=== PATIENT | female | born 1965 | race Caucasian/White ===

== ENCOUNTER 2016-04-07 17:08 | Emergency (ER) | payer OTHER ==
[~2016-04-07 17:08] MED LIST: CITRUCEL PO; FISH OIL PO; FLE10 PO; TYLENOL #4 PO
[2016-04-07 17:17] VITALS: BP 130/92; PULSE 125; RESP 22; O2SAT 98
--- NOTE | 2016-04-07 18:45 | ED.REPORT ---
HPI-Back Pain 40 and Over Date of Service Apr 07, 2016 ED Provider: Ector Ortiz MD Pt is a 50 y/o female presenting to the ED c/o increasing back pain over the sacrum w/ radiation to the bilateral legs for 1.5 weeks. She has been treated for her pain and evaluated by her PCP Dr. Douglas previously and had an MRI on Mar 07 which showed disc bulging at S1 and L4-L5. Her increasing pain has started to limit how long she can work. Her pain medications have been increased recently and she was told to rest for 4 days but this has provided no relief. She was told by her PCP to come into the ED. She denies bowel or bladder incontinence, severe lower extremity weakness, saddle anesthesia, fever. She has been trying to get an appointment with a neurosurgeon. The patient takes Tylenol, Cyclobenzaprine, Gabapentin, and Ibuprofen for her pain. She does not take opiates. Nursing Notes Stated Complaint: BACK PAIN Chief Complaint: Back Pain or Injury Nursing Notes Reviewed: Yes Allergies: Coded Allergies: atorvastatin (Verified Allergy, Severe, Myalgia, 04/07/16) hydromorphone (Verified Allergy, Severe, 04/07/16) hydromorphone HCl (Verified Allergy, Severe, heart stopped, 04/07/16) oxycodone (Verified Allergy, Severe, 04/07/16) levofloxacin (Verified Adverse Reaction, Severe, Blood surgar elevations, 04/07/16) doxycycline (Verified Adverse Reaction, Intermediate, pruritus, 04/07/16) ketorolac (Verified Adverse Reaction, Intermediate, pruritus, 04/07/16) Uncoded Allergies: MEDICATION BINDERS (Allergy, Intermediate, 12/04/11) Scheduled ([Fish Oil]) 1 PO DAILY Scheduled PRN ([Tylenol #4]) 1-2 PO PRN ([Citrucel]) 2 TBS PO DAILY PRN PRN Cyclobenzaprine-Expunged Drug, Do Not Renew! (Flexeril-Expunged Drug, Do Not Renew!) 10 Mg Tablet 10 MG PO DAILY PRN PRN Tramadol (Tramadol) 50 Mg Tablet 50 MG PO Q4H PRN PRN For Pain General Time Seen by MD: 18:44 Chief Complaint Lumbar pain Hx Obtained From: Patient Arrived By: Walk-in Sudden in Onset?: No Onset Occurred: 1 week ago Symptom Duration: Since onset Location: : Perispinal sacral Quality: Painful Severity: Current: Moderate Severity: Maximum: Severe Recent Healthcare: Recent testing, Previous diagnosis Similar Sx Previous: Yes Past Medical History Past Medical History Chronic back pain - spinal stenosis - MRI performed Past Surgical History None reported Smoking History Unknown if Ever Smoker Ambulatory Status Independent Review of Systems Constitutional: Denies: Fever Musculoskeletal: Reports: Lumbar pain Neurologic: Reports: Numbness, Denies: Bladder dysfunction, Bowel dysfunction, Weakness Complete sys rev & neg: except as marked. Physical Exam Initial Vital Signs Vital Signs (First) Date Time Temp Pulse Resp B/P Pulse Ox O2 Delivery O2 Flow Rate FiO2 04/07/16 17:17 36.4 125 22 130/92 98 Room Air Initial VS: Reviewed, Vital signs abnormal Head / Eyes: Atraumatic, Normocephalic, PERRL ENT: Mucous membranes moist, Conjunctiva normal, No scleral icterus Neck: Supple, Full range of motion Skin: Warm, Dry, No cyanosis Psychiatric: Mood/affect normal, Behavior normal, Normal thought content General/Constitutional: Awake, Alert, No acute distress, Cooperative, Not toxic appearing Appearance / Presentation: Positive: Uncomfortable Respiratory / Chest: Atraumatic, Breath sounds NL, Breath sounds = bilat, No respiratory distress, No rales, No rhonchi, No wheezing, No retractions, No stridor, No chest tenderness, No chest wall deformity, No crepitus Cardiovascular: Heart rate NL, Regular rhythm, Heart sounds NL, No gallop, No murmurs, No rubs, Cap refill not delayed, Peripheral circulation NL Abdomen: Atraumatic, Soft, Non-tender Back: Atraumatic Neurologic: Oriented X3, Speech NL, No sensory deficits Poor effort for the RLE strength exam. Full strength otherwise. No numbness No red flags Rectum / Perineum: Sphincter tone NL Re-Eval/Medical Decision Med Decision/Clinical Course 50-year-old female history of low back pain times several months. Complaining of worsening pain in the past week. She had an MRI of her lumbar spine March 07 which showed L4-L5 disc bulge with mild canal stenosis. She denies any new weakness, incontinence, numbness, saddle anesthesia. Her neurological exam is intact but with right lower extremity decreased effort. She denies any recent changes. Patient will be given tramadol to manage her pain. She does not have any sign symptoms of cauda equina at this time. She has no acute changes therefore she is advised to follow-up with her primary doctor and neurosurgeon as an outpatient. She is advised to return if she develops any new symptoms or sign symptoms cauda equina as discussed. She will be given a prescription for tramadol for breakthrough pain to add to her current regimen which includes muscle relaxer and NSAIDs. Re-Evaluation/Progress : Time of Eval: 19:52 Re-Evaluation/Progress Note: Pt rechecked. Informed pt of plan for treatment. Pt understands and agrees with plan for treatment. F/U instructions and RTER warnings given. All questions addressed. Counseled Regarding: Diagnosis, Need for follow-up, When/why to return to ED Discharge & Departure Impression: Primary Impression: Low back pain Chronicity: chronic Back pain laterality: unspecified Sciatica presence: with sciatica Sciatica laterality: bilateral sciatica Qualified Code: M54.41 - Lumbago with sciatica, right side Disposition: Home Discharge Condition All VS Reviewed: Yes Condition: Stable Patient Instructions: Acute Low Back Pain (ED) Additional Instructions: After review of old records, imaging, along with your interview and physical exam, I do not believe a new MRI or emergent surgery is required today. The most important thing for you to do at this point is have an appointment with a neurosurgeon. Return to the emergency department if you experience increasing leg weakness, increasing leg numbness, bowel or bladder incontinence, numbness of the saddle region (genitals, middle upper thighs), or for other concerning symptoms. Follow-up with your primary care physician in 2 days. Referrals: Kim Douglas MD (PCP) Eloy Attestation Portions of this note were transcribed by Lupillo Renee. I, Dr. Ortiz, personally performed the history, physical exam and medical decision-making; I reviewed and confirmed the accuracy of the information in the transcribed note. Signed by Eloy Washington, 04/07/16 - 1999 copies to: Kim Douglas MD, Ben M MD Apr 07, 2016 18:45 LUPILLO RENEE Apr 07, 2016 19:25
[2016-04-07] MEDS ORDERED: TRAM50TA2 PO (20:05)
[2016-04-07 20:31] VITALS: BP 121/90; PULSE 100; RESP 16; O2SAT 96
[2016-04-07 20:35] VITALS: BP 121/90; PULSE 100; RESP 16; O2SAT 96
== END 2016-04-07 20:36 | disposition home or self-care (01) ==
LOC: SED 17:08
DX: M54.41 Lumbago with sciatica, right side (principal); M54.42 Lumbago with sciatica, left side; Z88.5 Allergy status to narcotic agent; Z88.1 Allergy status to other antibiotic agents; Z88.8 Allergy status to other drugs, medicaments and biological substances